=== PATIENT | female | born 1985 | race Caucasian/White ===

== ENCOUNTER 2017-02-06 22:20 | Emergency (ER) | payer MEDICAID, OTHER ==
[~2017-02-06] VITALS: Ht 167.6 cm; Wt 136.0 kg
[~2017-02-06 22:20] MED LIST: NOCURR
[2017-02-06 22:30] VITALS: BP 117/69
[2017-02-06 22:53] LABS: ADD UA MICROSCOPIC YES; APPEARANCE,URINE TURBID (CLEAR); GLUCOSE, URINE (UA) NEGATIVE (NEGATIVE); KETONES,URINE NEGATIVE (NEGATIVE); LEUKOCYTE ESTERASE ,URINE MODERATE (NEGATIVE); OCCULT BLOOD,URINE NEGATIVE (NEGATIVE); PROTEIN,URINE NEGATIVE (NEGATIVE)
[2017-02-06 23:02] LABS: RBC,URINE None Seen /HPF (0-2); SQUAMOUS EPITHELIAL CELL,UR Moderate /LPF (None Seen)
== END 2017-02-06 23:35 | disposition home or self-care (01) ==
LOC: EMS 22:21
DX: N39.0 Urinary tract infection, site not specified (principal)
CPT/HCPCS: 87086; 99284

== ENCOUNTER 2019-01-28 22:44 | Emergency (ER) | payer OTHER ==
[~2019-01-28] VITALS: Ht 167.6 cm; Wt 140.9 kg
[2019-01-29 03:06] VITALS: BP 128/73
== END 2019-01-29 03:05 | disposition home or self-care (01) ==
LOC: EMS 22:45
DX: K03.81 Cracked tooth (principal); K08.89 Other specified disorders of teeth and supporting structures

== ENCOUNTER 2022-11-28 15:38 | Emergency (ER) | payer OTHER ==
[~2022-11-28] VITALS: Ht 167.6 cm; Wt 159.1 kg
[2022-11-28 15:46] VITALS: BP 154/95
[2022-11-28] MEDS ORDERED: SULF15DR26 OS (17:09)
[2022-11-28] MEDS ORDERED: PERCT PO (17:09)
[2022-11-28] MEDS ORDERED: NAPH15DR75 OD (17:09)
== END 2022-11-28 17:33 | disposition home or self-care (01) ==
LOC: EMS 15:42
DX: H10.9 Unspecified conjunctivitis (principal); J30.2 Other seasonal allergic rhinitis; Z90.49 Acquired absence of other specified parts of digestive tract
CPT/HCPCS: 99283; Z7502